=== PATIENT | male | born 1980 | race Two or more races ===

== ENCOUNTER 2025-05-07 14:11 | Emergency (ER) | payer MEDICAID, OTHER ==
[~2025-05-07] VITALS: Ht 188 cm; Wt 80.7 kg
[~2025-05-07 14:11] MED LIST: DIPH25CA83 PO; FAMO-128 PO
[2025-05-07 14:12] VITALS: BP 163/88; PULSE 121; RESP 20; TEMP 98.3; O2SAT 94
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
== END 2025-05-07 14:28 | disposition home or self-care (01) ==
LOC: ER 14:11
DX: Z02.89 Encounter for other administrative examinations (principal)
CPT/HCPCS: 99283